=== PATIENT | female | born 1940 | race Hispanic/Latino ===

== ENCOUNTER → 2025-05-30 | Day surgery (SDC) | payer MEDICARE, BC ==
[2025-05-29 11:31] LABS: BASOPHILS % 0.3 % (0.0-1.0); EOSINOPHILS % 1.6 % (0.0-6.0); LYMPHOCYTES % 11.4 % (18.0-39.1); MONOCYTES % 7.9 % (4.4-11.3); NEUTROPHILS % 78.5 % (38.7-80.0); RED CELL DISTRIBUTION WIDTH 13.6 % (11.7-14.4)
[2025-05-29 12:00] LABS: EST GLOMERULAR FILTRATION RATE 46.0 ML/MIN (>=60)
[~2025-05-30] MED LIST: ATORVASTATIN CA20 MG PO; DOCUSATE SODIU100 MG PO; ELIQUIS2.5 MG PO; EPHEDRINE SULFATE INJ 50 MG/ML VIAL ONE; FARXIGA5 MG PO; FENTANYL CITRATE/PF 100MCG/2 ML INJ ONE; GLUCOSAMINE1000 MG PO; HYDRALAZINE HCL25 MG PO; HYDROCHLOROTHIA25 MG PO; JANUVIA50 MG PO; LIDOCAINE HCL 2% LOCAL INJ 5 ML SDV VIAL INJ ONE; LISINOPRIL10 MG PO; MIDAZOLAM HCL 2 MG/2 ML VIAL ONE; MULTI-VITAMIN1 EACH PO; ONDANSETRON HCL INJ 2MG/ML 2ML 2 MG/ML VIAL ONE; PROPOFOL IV EMULSION 10 MG/ML 20 ML VIAL ONE; ROCURONIUM BROMIDE 1 ML IV ONE; SEVOFLURANE INHAL SOLN 250 ML PEN BTL ONE; SUGAMMADEX SODIUM 200 MG/2 ML VIAL IV ONE; TYLENOL325 MG PO; VITAMIN C 500500 MG PO; ZINC PO
[2025-05-30 10:06] LABS: EST GLOMERULAR FILTRATION RATE 45.0 ML/MIN (>=60)
[2025-05-30] MEDS: LEVOFLOXACIN 500MG/D5W 100ML 100 ML IV ONE (10:55)
[2025-05-30] MEDS: SODIUM CHLORIDE 0.9% 1000ML 1,000 ML ONE (10:55)
[2025-05-30 11:53] VITALS: TEMP 97.6
[2025-05-30 13:00] VITALS: BP 149/69; PULSE 70; RESP 15; O2SAT 100
== END | disposition home or self-care (01) ==
LOC: OR 09:34
PROVIDERS: ATTEND Urology
DX: N20.1 Calculus of ureter (principal); N13.30 Unspecified hydronephrosis; Z46.6 Encounter for fitting and adjustment of urinary device; N81.10 Cystocele, unspecified; I10 Essential (primary) hypertension; E11.9 Type 2 diabetes mellitus without complications; Z88.6 Allergy status to analgesic agent; Z88.0 Allergy status to penicillin; Z88.2 Allergy status to sulfonamides; Z88.8 Allergy status to other drugs, medicaments and biological substances; Z01.810 Encounter for preprocedural cardiovascular examination; Z01.812 Encounter for preprocedural laboratory examination; Z01.818 Encounter for other preprocedural examination; Z79.02 Long term (current) use of antithrombotics/antiplatelets; Z79.84 Long term (current) use of oral hypoglycemic drugs; Z79.899 Other long term (current) drug therapy; Z86.718 Personal history of other venous thrombosis and embolism
CPT/HCPCS: 36415 ×2; 52356; 71046; 74420; 80048 ×2; 82948; 85025; 88300; 93005; C1758 ×2; C2617; J1956; J2003; J2405; J2704; J3010; J7030; J2250

== ENCOUNTER → 2025-06-13 | Outpatient (REF) | payer MEDICARE, BC ==
[~2025-06-13] MED LIST changes: -EPHEDRINE SULFATE INJ 50 MG/ML VIAL ONE; -FENTANYL CITRATE/PF 100MCG/2 ML INJ ONE; -LIDOCAINE HCL 2% LOCAL INJ 5 ML SDV VIAL INJ ONE; -MIDAZOLAM HCL 2 MG/2 ML VIAL ONE; -ONDANSETRON HCL INJ 2MG/ML 2ML 2 MG/ML VIAL ONE; -PROPOFOL IV EMULSION 10 MG/ML 20 ML VIAL ONE; -ROCURONIUM BROMIDE 1 ML IV ONE; -SEVOFLURANE INHAL SOLN 250 ML PEN BTL ONE; -SUGAMMADEX SODIUM 200 MG/2 ML VIAL IV ONE
== END ==
LOC: EDSTATUS 09:37 → RAD 09:37
PROVIDERS: ATTEND Urology
DX: N20.0 Calculus of kidney (principal)
CPT/HCPCS: 74018

== ENCOUNTER → 2025-07-11 | Day surgery (SDC) | payer MEDICARE, BC ==
[~2025-07-11] MED LIST changes: +ACETAMINOPHEN 1000 MG/100 ML 100 ML IV ONE; +EPHEDRINE SULFATE INJ 50 MG/ML VIAL ONE; +FAMOTIDINE 20 MG/2 ML VIAL IV ONE; +FENTANYL CITRATE/PF 100MCG/2 ML INJ ONE; +LIDOCAINE HCL 2% LOCAL INJ 5 ML SDV VIAL INJ ONE; +ONDANSETRON HCL INJ 2MG/ML 2ML 2 MG/ML VIAL ONE; +PROPOFOL IV EMULSION 10 MG/ML 20 ML VIAL ONE; +SEVOFLURANE INHAL SOLN 250 ML PEN BTL ONE
[2025-07-11 08:48] LABS: BASOPHILS % 0.3 % (0.0-1.0); EOSINOPHILS % 2.9 % (0.0-6.0); LYMPHOCYTES % 12.1 % (18.0-39.1); MONOCYTES % 7.7 % (4.4-11.3); NEUTROPHILS % 76.6 % (38.7-80.0); RED CELL DISTRIBUTION WIDTH 13.9 % (11.7-14.4)
[2025-07-11] MEDS: LEVOFLOXACIN 500MG/D5W 100ML 100 ML IV ONE (08:53)
[2025-07-11] MEDS: LACTATED RINGER'S 1,000 ML ONE (08:54)
[2025-07-11 09:32] LABS: EST GLOMERULAR FILTRATION RATE 40.0 ML/MIN (>=60)
[2025-07-11 11:30] VITALS: TEMP 97.4
[2025-07-11 12:25] VITALS: BP 160/81; PULSE 83; RESP 16; O2SAT 98
== END | disposition home or self-care (01) ==
LOC: OR 07:49
PROVIDERS: ATTEND Urology
DX: N20.0 Calculus of kidney (principal); N13.39 Other hydronephrosis; I10 Essential (primary) hypertension; E11.9 Type 2 diabetes mellitus without complications; Z88.0 Allergy status to penicillin; Z88.5 Allergy status to narcotic agent; Z88.6 Allergy status to analgesic agent; Z88.2 Allergy status to sulfonamides; Z88.1 Allergy status to other antibiotic agents; Z86.718 Personal history of other venous thrombosis and embolism; Z91.048 Other nonmedicinal substance allergy status; Z79.01 Long term (current) use of anticoagulants; Z79.84 Long term (current) use of oral hypoglycemic drugs; Z79.899 Other long term (current) drug therapy; Z01.812 Encounter for preprocedural laboratory examination
CPT/HCPCS: 36415; 50590; 52332; 80048; 82948; 85025; C1758; C2617; J0131; J1308; J1956; J2003; J2405; J2704; J3010; J7121